=== PATIENT | female | born 1980 | race Caucasian/White ===

== ENCOUNTER 2016-09-17 15:21 | Emergency (ER) | payer BC ==
[~2016-09-17] VITALS: Ht 162.6 cm; Wt 64.5 kg
[2016-09-17 18:54] VITALS: BP 139/109
== END 2016-09-17 18:55 | disposition home or self-care (01) ==
LOC: EME 15:21
DX: S86.111A Strain of other muscle(s) and tendon(s) of posterior muscle group at lower leg level, right leg, initial encounter (principal); Z88.2 Allergy status to sulfonamides
CPT/HCPCS: 93971; 99281; 99284

== ENCOUNTER 2017-03-26 22:51 | Observation (INO) | payer BC ==
[~2017-03-26] VITALS: Ht 162.6 cm; Wt 68.6 kg
[2017-03-26 23:25] LABS: HEMATOCRIT 42.8 % (36.0-46.0); MCH 31.1 PG (29.0-34.0); MCHC 34.6 G/DL (30.0-36.0); MCV 89.9 FL (83-99); MEAN PLAT.VOLUME 9.8 uM^3 (9.5-12.4); PLATELET COUNT 239 K/uL (156-360); RBC DIS.WIDTH-SD 39.3 % (39-53); RED BLOOD COUNT 4.76 M/uL (3.80-5.20); WHITE BLOOD COUNT 9.8 K/uL (4.1-10.2)
[2017-03-26 23:38] LABS: CHLORIDE 106 mEq/L (99-109); POTASSIUM 3.7 mEq/L (3.7-5.4); SODIUM 140 mEq/L (136-147)
[2017-03-26 23:40] LABS: GLUCOSE 93 mg/dL (70-99)
[2017-03-26 23:41] LABS: ANION GAP 11 MEQ/L (2-14)
[2017-03-26 23:44] LABS: GFR ESTIMATE (CALCULATED) > 59 mL/min/; UREA NITROGEN (BUN) 8 mg/dL (9-23)
[2017-03-26 23:51] LABS: TROP-I INTERPRETATION NEGATIVE; TROPONIN-I < 0.01 ng/mL (0.0-0.30)
[2017-03-27 00:39] LABS: QUANTITATIVE HCG < 4.0 MIU/ML
[2017-03-27 03:02] LABS: TROP-I INTERPRETATION NEGATIVE; TROPONIN-I < 0.01 ng/mL (0.0-0.30)
[2017-03-27 07:10] VITALS: BP 165/89
[2017-03-27 09:47] LABS: TROP-I INTERPRETATION NEGATIVE; TROPONIN-I < 0.01 ng/mL (0.0-0.30)
[2017-03-27] MEDS ORDERED: AMLODIPINE BESYL5 MG PO (10:06)
== END 2017-03-27 11:07 | disposition home or self-care (01) ==
LOC: EME 22:51 → ENPENDDIS 03-27 → EDOF 03-27 03:53 → ENRESERV 03-27 03:54 → CANRESERV 03-27 04:04 → ENRESERV 03-27 04:04 → 5WEST 03-27 07:08
PROVIDERS: Emergency Medicine; Hospitalist
DX: R07.9 Chest pain, unspecified (principal); I16.0 Hypertensive urgency; R00.0 Tachycardia, unspecified; F41.9 Anxiety disorder, unspecified; R91.1 Solitary pulmonary nodule; R06.02 Shortness of breath; Z88.2 Allergy status to sulfonamides
CPT/HCPCS: 71020; 71275; 80048; 84443; 84484; 84702; 85027; 93005; 99281; 99285; G0378; J2060; J7040